=== PATIENT | male | born 1990 | race Caucasian/White ===

== ENCOUNTER 2016-10-26 16:53 | Emergency (ER) | payer OTHER ==
[2016-10-26] MEDS ORDERED: ACETAMINOPHEN 325 MG TABLET PO STA (17:05)
[2016-10-26] MEDS ORDERED: IBUPROFEN 400 MG TABLET PO STA (17:05)
[2016-10-26] MEDS ORDERED: ACETAMINOPHEN 325 MG TABLET PO ONE (17:14)
[2016-10-26] MEDS ORDERED: IBUPROFEN 400 MG TABLET PO ONE (17:14)
[2016-10-26] MEDS ORDERED: HYDROcod/ACETAM 5/325 MG TABLET PO STA (19:36)
[2016-10-26] MEDS ORDERED: HYDROcod/ACETAM 5/325 MG TABLET ONE (19:38)
== END 2016-10-26 20:22 | disposition home or self-care (01) ==
DX: S82.891A Other fracture of right lower leg, initial encounter for closed fracture (principal); X50.0XXA Overexertion from strenuous movement or load, initial encounter; Y93.67 Activity, basketball; Y92.310 Basketball court as the place of occurrence of the external cause; F17.200 Nicotine dependence, unspecified, uncomplicated
CPT/HCPCS: 29125; 73610; 73630; 99283; A9270

== ENCOUNTER 2018-12-07 06:00 | Day surgery (SDC) | payer OTHER ==
[2018-12-07] MEDS ORDERED: CEFAZOLIN SODIUM IN 0.9 % NACL 2 GM/100 ML BAG IV ONE (06:33)
[2018-12-07] MEDS ORDERED: LACTATED RINGERS 1,000 ML IV ONE ×2 (07:01→08:57)
--- NOTE | 2018-12-07 07:08 | ANESTHESIA ---
Pre-Anesthesia VS, & Labs - Diagnosis right ankle lesion, impingement instability - Procedure right ankle arthroscopy, microfracture, osteophyte excision Vital Signs: 152/86, 72,97%, 36.0 Height 6 ft 2 in Weight (kg) 106.59 kg Body Mass Index 30.8 - NPO >8 hours Home Medications and Allergies Home Medications: Ambulatory Orders No Known Home Medications 11/26/18 No Known Home Medications 11/26/18 Allergies/Adverse Reactions: Allergies Allergy/AdvReac Type Severity Reaction Status Date / Time No Known Drug Allergies Allergy Verified 12/07/18 07:02 Anes History & Medical History - Anesthetic History Anesthesia Complications: reports: No previous complications Family history of Anesthesia Complications: Denies Family history of Malignant Hyperthermia: Denies - Medical History Cardiovascular: reports: Hypertension (not on meds, newly diagnosed) Pulmonary: reports: None Gastrointestinal: reports: None Urinary: reports: None Musculoskeletal: reports: Other Endocrine/Autoimmune: reports: None Skin: reports: None Smoking Status: Current every day smoker Exam General: Alert Dental: WNL Mouth Opening: Greater than 4 Fingerbreadths Neck Mobility: Normal Mallampati classification: II Thyromental Distance: greater than 6 cm Respiratory: Lungs clear Cardiovascular: Regular rate, Normal S1, Normal S2 Plan Anesthesia Type: General Consent for Procedure(s) Verified and Reviewed: Yes Code Status: Attempt Resuscitation ASA classification: 2-Mild systemic disease Is this case an emergency?: No
[2018-12-07] MEDS ORDERED: BUPIVACAINE 0.25% PF 30 ML VIAL ONE (07:29)
[2018-12-07] MEDS ORDERED: LIDOCAINE-MPF 2% 5 ML VIAL IM ONE (08:23)
[2018-12-07] MEDS ORDERED: MIDAZOLAM 2 MG/2 ML VIAL IVP ONE (08:23)
[2018-12-07] MEDS ORDERED: ONDANSETRON 4 MG/2 ML VIAL IVP ONE (08:23)
[2018-12-07] MEDS ORDERED: HYDROmorphone 1 MG/ML SYRINGE IM ONE (08:23)
[2018-12-07] MEDS ORDERED: DEXAMETHASONE 4 MG/ML VIAL IVP ONE (08:23)
[2018-12-07] MEDS ORDERED: KETOROLAC 30 MG/ML VIAL IVP ONE (08:23)
[2018-12-07] MEDS ORDERED: fentaNYL 250 MCG/5 ML VIAL IVP ONE (08:23)
[2018-12-07] MEDS ORDERED: PROPOFOL 200 MG/20 ML VIAL IVP ONE (08:23)
[2018-12-07] MEDS ORDERED: EPINEPHrine 1 MG/ML AMP IVP ONE (08:43)
[2018-12-07] MEDS ORDERED: BUPIVACAINE 0.25% PF 30 ML VIAL SUBQ ONE ×2 (08:43)
[2018-12-07] MEDS ORDERED: ONDANSETRON 4 MG/2 ML VIAL IVP PRN (11:51)
[2018-12-07] MEDS ORDERED: oxyCODONE 5 MG TABLET PO PRN (11:51)
[2018-12-07] MEDS: HYDROmorphone 1 MG/ML CARPUJECT ONE ×2 (12:05→12:17)
[2018-12-07] MEDS ORDERED: ACETAMINOPHEN 1,000 MG/100 ML 100 ML IV ONE (12:06)
--- NOTE | 2018-12-07 12:14 | OPERATIVE REPORT ---
Operative Report - Other Other Information/Narrative: Date of Surgery: 07 December 2018 Pre-Op Diagnosis: Right ankle osteochondral lesion of talus Right ankle anterior impingement Right ankle instability Procedure: Right ankle arthroscopy with talar chondroplasty and synovectomy Right ankle open osteophyte excision distal tibia Right ankle open lateral ligament repair Postop Diagnosis: Same Primary Surgeon: Lance Liz Secondary Surgeon: Emigdio Palacio Complications: None Tourniquet Time: 124 minutes EBL: 25 cc Implants: 2.4 mm Arthrex bio composite suture tack x 2 Arthroscopic findings: Anterior distal tibia osteophyte. There is a large linear cartilage lesion along the medial shoulder of the talus. There was no significant cartilage loss. There was injected synovium throughout. Syndesmosis and facets ligament were bulging. Tibial cartilage was intact. Postoperative Protocol: Same day surgery discharge Splint nonweightbearing until 2 weeks At 2 weeks the splint will be removed, sutures will be removed, and he will be placed in a boot or a cast. At 6 weeks he will be allowed to start walking with a boot on At 12 weeks he can wean from the boot and advance activities as tolerated Indication For Surgery: 27-year-old male with a long history of ankle that has been refractory to physical therapy. He also has an osteochondral lesion of the talus and distal tibia as well as anterior impingement with range of motion limitations and anterior pain. The risks, benefits, and alternatives were discussed. Risks include pain, bleeding, infection, damage to nearby structures, numbness, lack of symptom relief, implant complications, nonunion, need for further surgery, DVT, PE, stroke, and . Written consent was obtained. Procedure in Detail: The patient was met in the pre-operative hold area on the day of the procedure. The operative extremity was signed and questions were ans wered. The patient was brought to the operating room and a general anesthetic was administered. Supine position was used, with a padded well leg negrete and the ankle traction device and all bony prominences were padded. Standard prepping and draping was performed. A time out confirmed patient identification, laterality, procedure, allergies, antibiotics, and images. An Esmarch was used to exsanguinate the limb and the tourniquet was elevated to 250 mmHg. The ankle was placed into the traction device until distraction was seen at the ankle joint. I then made a 3 mm incision at the level of the ankle joint just medial to tibialis anterior. The ankle scope was inserted without issue. I then used an 18-gauge needle just lateral to extensor digitorum to create an anterolateral portal site. Another 3 mm incision was made and the probe was inserted. A 21 point ankle diagnostic arthroscopy was performed using the standard fashion. The shaver was used to perform chondroplasty of the talus removing all loose portions. I also performed a synovectomy anteriorly and posteriorly and debrided Torrance's ligament. Once satisfied with that the instruments were removed from the joint and a traction was released and his leg was taken out of the well leg negrete. I then extended the anteromedial portal site to 3 cm and perform blunt dissection down to the capsule. The capsule was then opened longitudinally and a retractor was placed anterior to the joint all the way across the tibia. I was able to see the osteophyte clearly. A [place] was placed just under the osteophyte to protect the talus and an osteotome was used to remove the anterior osteophyte in its entirety. I then used a curette to smooth out any sharp corners. I then fully dorsiflex the ankle and confirm that there was no impingement. Fluoroscopy was used to confirm this as well. The joint was again irrigated. The capsule was closed with 0 Vicryl. I then moved on to the Brostrm procedure. A 5cm incision was made over the lateral ankle coursing in line with the fibers of the ATFL. Incision was carried down to the level of the retinaculum. Full- thickness skin flaps were then elevated anteriorly as well as posteriorly. The capsule anterior and inferior to the fibular tip was opened 2 mm off of the fibula leaving a small cuff. A blunt instrument was placed into the joint along the front end of the fibula and the capsule was opened. The peroneal tendons were identifed and protected. The fibula cuff was then elevated subperiosteally. The anterior distal fibula bone was then prepped, creating a small trough using a rongeur as well as a curet. I then looked inside the joint into the talus and noted large osteophytes on the talus when the ankle was in full dorsiflexion. I used a rondure to remove all of these osteophytes improving his range of motion. I also took small osteophytes off of the fibula. Two anchors were then inserted, the first at the CFL footprint and the second at the ATFL footprint. The limb was elevated from the table via the suture anchors to ensure secure fixation. The area fixation was quite large so a third anchor was placed between the other 2. The CFL suture anchor was then passed distally through the CFL amd capsule and pulled taut. The ATFL suture was then passed in similar fashion through the ATFL tissue and capsule in the anatomic location. The tourniquet was then let down and hemostasis was achieved. The ankle was placed in neutral dorsiflexion and slight hindfoot valgus and the sutures were tied. The sutures were then passed proximally from deep to superficial through the previously elevated periosteal tissue. The sutures were again tied. The sutures were then passed distally through the extensor retinaculum and were again tied. The sutures were cut. The ankle was then tested and noted to be stable to anterior drawer testing as well as to talar tilt testing. The wound was then irrigated copiously. Closure was then conducted using 0 Vicryl in a [id number] fashion for the deep tissue layer followed 2-0 vicryl in buried interrupted fashion for the deep dermal layer. The skin was then closed using 3-0 nylon in a mattress suture fashion. 18 mL's of 0.25% Marcaine was injected into the periwound soft tissue . The wounds were then dressed with Xeroform, plain 4x4 gauze, and wrapped in sterile Webril. They were then placed in a L and U splint at neutral dorsiflexion and approximately 5 degrees of eversion, awakened from general anesthesia without complication, brought to the Postanesthesia Care Unit for further Recovery.
[2018-12-07] MEDS ORDERED: LACTATED RINGERS 500 ML IV ONE (12:24)
[2018-12-07] MEDS ORDERED: oxyCODONE 5 MG TABLET ONE (12:50)
[2018-12-07 13:21] VITALS: BP 136/85
== END 2018-12-07 06:01 | disposition home or self-care (01) ==
LOC: SDS 06:00
PROVIDERS: ATTEND Orthopaedic Surgery
PROC: 0SBF4ZZ Excision of Right Ankle Joint, Percutaneous Endoscopic Approach (ICD-10-PCS; 2018-12-07)
PROC: 0QBG0ZZ Excision of Right Tibia, Open Approach (ICD-10-PCS; 2018-12-07)
PROC: 0QBJ0ZZ Excision of Right Fibula, Open Approach (ICD-10-PCS; 2018-12-07)
PROC: 0QBL0ZZ Excision of Right Tarsal, Open Approach (ICD-10-PCS; 2018-12-07)
PROC: 0MQQ0ZZ Repair Right Ankle Bursa and Ligament, Open Approach (ICD-10-PCS; principal; 2018-12-07 07:30)
PROC: 0QBL4ZZ Excision of Right Tarsal, Percutaneous Endoscopic Approach (ICD-10-PCS; 2018-12-07 07:30)
DX: M24.271 Disorder of ligament, right ankle (principal); M25.771 Osteophyte, right ankle; M24.171 Other articular cartilage disorders, right ankle; M89.9 Disorder of bone, unspecified; S93.401S Sprain of unspecified ligament of right ankle, sequela; I10 Essential (primary) hypertension; F17.210 Nicotine dependence, cigarettes, uncomplicated; Z79.1 Long term (current) use of non-steroidal anti-inflammatories (NSAID); Z87.39 Personal history of other diseases of the musculoskeletal system and connective tissue
CPT/HCPCS: 27635; 27698; 29891; 29897; A9270; C1713; J0131; J0690; J1170; J3010; J7120